=== PATIENT | female | born 1975 | race Caucasian/White ===

== ENCOUNTER 2016-12-12 13:07 | Emergency (ER) | payer OTHER ==
--- NOTE | ~2016-12-12 | CR151 ---
[facility] A Service of [facility] & [facility] RADIOLOGY TEXT RESULTS PATIENT: VIVIANE ENCARNACION LOCATION: [facility] : 71 UNIT #: [id number] AGE: [address]: Izaiah Arellano MD SEX: F ORDER DR: [id number] [facility] [address] [place], [place] [address] [id number] E MR#: [id number] Acc #: [id number] NAME: VIVIANE ENCARNACION. : 1975 SEX: F STUDY DATE/TIME: 12/12/2016 14:26 UNIT: [facility] ROOM: STUDY DESCRIPTION: CR Hip Min 2 Views Rt Attending Physician: Izaiah Arellano M.D. Ordering Physician: Izaiah Arellano M.D. Primary Care Physician: Tacho Gleason Jr., A.P.R.N. MEDICAL IMAGING REPORT This report is preliminary unless electronic signature is present EXAM AP pelvis and right hip, 2 views. HISTORY SUPPLIED Fell yesterday with right hip and femur pain. FINDINGS An AP view of the pelvis and an oblique view of the right hip were obtained. The bony elements appear intact and in normal alignment. No fractures are seen. Small unfused ossicle is identified at the lesser trochanter. CONCLUSION Negative right hip. No acute findings. Dictated by... Aaron Rodriguez M.D. THIS IS AN ELECTRONICALLY VERIFIED REPORT Aaron Rodriguez M.D. at 12/13/2016 4:41 PM DARA/jossy TD: 12/12/2016 19:08 JOB #: [id number] MEDICAL IMAGING REPORT Page 1 of 1 COPY
--- NOTE | ~2016-12-12 | CR107 ---
[facility] A Service of [facility] & [facility] RADIOLOGY TEXT RESULTS PATIENT: VIVIANE ENCARNACION LOCATION: [facility] : 71 UNIT #: [id number] AGE: [address]: Izaiah Arellano MD SEX: F ORDER DR: [id number] [facility] [address] [place], [place] [address] [id number] E MR#: [id number] Acc #: [id number] NAME: VIVIANE ENCARNACION. : 1975 SEX: F STUDY DATE/TIME: 12/12/2016 14:27 UNIT: [facility] ROOM: STUDY DESCRIPTION: CR Femur 2 Views Rt Attending Physician: Izaiah Arellano M.D. Ordering Physician: Izaiah Arellano M.D. Primary Care Physician: Tacho Gleason Jr., A.P.R.N. MEDICAL IMAGING REPORT This report is preliminary unless electronic signature is present EXAM Right femur, 4 views. HISTORY SUPPLIED Fell yesterday with right femur pain. FINDINGS 4 views are submitted. The bony elements are intact. No fractures are identified. There is an unfused apophysis at the lesser trochanter. CONCLUSION Negative. Dictated by... Aaron Rodriguez M.D. THIS IS AN ELECTRONICALLY VERIFIED REPORT Aaron Rodriguez M.D. at 12/13/2016 4:41 PM DARA/jossy TD: 12/12/2016 19:17 JOB #: [id number] MEDICAL IMAGING REPORT Page 1 of 1 COPY
[~2016-12-12 13:07] MED LIST: ADVIL200 M2 PO; AMLODIPINE BESYL5 MG PO; FISH OIL500 M1 PO; GLUCOPHAGE500 MG PO; GLUCOSAMINE & C1 CAP PO; LEVOTHROID50 MCG PO; LEVOTHYROXINE50 MCG PO; LIPITOR20 MG; LISINOPRIL-HCTZ1 T14 PO; LORATADINE10 M1 PO; METFORMIN HCL500 M1; METOPROLOL SUCC50 MG PO; NECON PO; NORVASC PO; OMEPRAZOLE40 M1 PO; PREDNISONE PO; SIMVASTATIN20 MG PO; SYNTHROID0.1 MG PO; TRI NESSA PO; TRI-LINYAH1 EACH PO; TRI-LO-SPRINTE1 EACH PO; TYLOX1 CAP 5/50 PO; WELLBUTRIN PO; ZOCOR20 MG PO
[2016-12-12 14:03] LABS: BASOPHIL% 0.5 % (0-2.5); EOSINOPHIL# 0.2 X10e3 (0-0.7); EOSINOPHIL% 2.6 % (0.0-7.0); HEMOGLOBIN 10.4 gm/dL (12.0-16.0); LYMPHOCYTE# 1.5 X10e3 (1.0-3.5); LYMPHOCYTE% 23.3 % (17.0-45.0); MEAN CELL VOLUME 93.5 FL (83-96); MEAN CORPUSCULAR HEMOGLOBIN 31.2 PG (28-34); MEAN CORPUSCULAR HGB CONC 33.4 g/dL (30-36); MEAN PLATELET VOLUME 7.7 FL (6.5-11.5); MONOCYTE# 0.5 X10e3 (0-1.0); NEUTROPHIL# 4.1 X10e3 (1.5-7.1); NEUTROPHIL% 65.6 % (40-75); PLATELET COUNT 125 X10e3 (140-420); RED BLOOD COUNT 3.32 X10e (3.90-5.30); RED CELL DISTRIBUTION WIDTH 14.4 % (11.0-15.5); WHITE BLOOD COUNT 6.3 X10e3 (4.0-10.5)
[2016-12-12 14:05] LABS: DIFF IND NO
[2016-12-12 14:18] LABS: PARTIAL THROMBOPLASTIN TIME 30.8 SECONDS (23.5-31.3)
== END 2016-12-12 15:35 | disposition home or self-care (01) ==
LOC: CED 13:07 → CFTX 13:07 → CED 13:43
PROVIDERS: Emergency Medicine
DX: S70.01XA Contusion of right hip, initial encounter (principal); E11.9 Type 2 diabetes mellitus without complications; I10 Essential (primary) hypertension; Z88.8 Allergy status to other drugs, medicaments and biological substances; W01.0XXA Fall on same level from slipping, tripping and stumbling without subsequent striking against object, initial encounter; Y92.009 Unspecified place in unspecified non-institutional (private) residence as the place of occurrence of the external cause
CPT/HCPCS: 36415; 73502; 73552; 85025; 85610; 85730; 99284